=== PATIENT | female | born 1975 | race American Indian/Alaskan Native ===

== ENCOUNTER 2016-07-08 06:13 | Day surgery (SDC) | payer MEDICAID, OTHER ==
[2016-07-08] MEDS ORDERED: PEPCID PO NR (07:00)
[2016-07-08] MEDS ORDERED: VERSED IV NR (07:00)
[2016-07-08] MEDS ORDERED: NACL 0.9% 1000 ML 1,000 ML IV SCH (07:00)
--- NOTE | 2016-07-08 07:01 | Anesthesia Consultation ---
Anesthesia Consult and Med Hx Date of service: 07/08/16 - Airway Anesthetic Teeth Evaluation: Partials ROM Head & Neck: Adequate Mental/Hyoid Distance: Adequate Mallampati Class: Class I Intubation Access Assessment: Good - Pulmonary Exam CTA: Yes - Cardiac Exam Cardiac Exam: RRR - Pre-Operative Health Status ASA Pre-Surgery Classification: ASA1 Proposed Anesthetic Plan: General (Previous BTL.) - Pulmonary Hx Smoking: No Hx Asthma: No Hx Respiratory Symptoms: No SOB: No COPD: No Hx Pneumonia: No Hx Sleep Apnea: No - Cardiovascular System Hx Hypertension: No Hx Coronary Artery Disease: No Hx Heart Attack/AMI: No Hx Angina: No Hx Percutaneous Transluminal Coronary Angioplasty (PTCA): No Hx Cardia Arrhythmia: No Hx Pacemaker: No Hx Internal Defibrillator: No Hx Valvular Heart Disease: No Hx Heart Murmur: No Hx Peripheral Vascular Disease: No - Central Nervous System Hx Neuromuscular Disorder: No Hx Seizures: No CVA: No Hx Back Pain: No Hx Psychiatric Problems: No - Gastrointestinal Hx Ulcer: No Hx Gastroesophageal Reflux Disease: No - Endocrine Hx Renal Disease: No Hx End Stage Renal Disease: No Hx Liver Disease: No Hx Insulin Dependent Diabetes: No Hx Non-Insulin Dependent Diabetes: No Hx Thyroid Disease: No Hx Hypothyroidism: No Hx Hyperthyroidism: No - Hematic Hx Anemia: Yes Hx Sickle Cell Disease: No - Other Systems Hx Alcohol Use: No Hx Substance Use: Yes (pt urine pos for opiates (per dr coleman's note)) Hx Cancer: No Hx Obesity: No
[2016-07-08] MEDS ORDERED: DILAUDID ONE (07:03)
[2016-07-08] MEDS ORDERED: DIPRIVAN 10 MG/ML IV ONE (07:03)
[2016-07-08] MEDS ORDERED: NACL BACTERIOSTATIC INFILTRATI ONE (07:04)
[2016-07-08] MEDS ORDERED: ZEMURON IV ONE ×2 (07:05→07:07)
[2016-07-08] MEDS ORDERED: XYLOCAINE MPF 2% ONE (07:06)
--- NOTE | 2016-07-08 07:16 | Anesthesia Day of Surgery ---
Anesthesia Day of Surgery - Day of Surgery Patient Examined: Yes Patient H&P Reviewed: Yes Patient is NPO: Yes
[2016-07-08 07:35] LABS: Basophils % (Auto) 1.3 % (0.0-1.8); Eosinophils % (Auto) 5.2 % (0.0-4.3); Hematocrit 31.2 % (30.3-42.9); Hemoglobin 10.2 gm/dl (10.1-14.3); Mean Corpuscular HGB Conc 33 % (30-34); Mean Corpuscular Hemoglobin 27 pg (28-32); Mean Corpuscular Volume 83 fl (79-97); Platelet Count 215 K/mm3 (140-440); Red Blood Count 3.77 M/mm3 (3.65-5.03); Red Cell Distribution Width 16.8 % (13.2-15.2); White Blood Count 5.7 K/mm3 (4.5-11.0)
--- NOTE | 2016-07-08 07:36 | Short Stay Summary ---
Short Stay Documentation Date of service: 07/08/16 Narrative H&P: Patient is a 40 year old who presents with positive test after tubal ligation and confirmed ectopic on ultrasound. FHTs were present which makes patient not eligible for medical management. - History H&P: obtained from office Past Medical History: No medical history Past Surgical History: Other (tubal ligation) Social history: - Allergies and Medications Current Medications: Allergies No Known Allergies Allergy (Verified 08/26/13 15:01) Home Medications Medication Instructions Recorded Confirmed Last Taken Type Vit-Fe Fumar-FA [ 1 tab PO DAILY 08/18/13 09/13/13 09/14/13 13: 00 History Vitamin] HYDROcodone/APAP 5-325 [Abrams 1 each PO Q6HR PRN #25 tablet 09/15/13 Unknown Rx 5/325 mg] Ibuprofen [Motrin] 600 mg PO Q6H PRN #40 tablet 09/15/13 Unknown Rx Active Medications Cefazolin Sodium (Ancef/Sterile Water 2 Gm/20 Ml) 2 gm IV PREOP NR Stop: 07/08/16 23:59 Famotidine (Pepcid) 20 mg PO PREOP NR Stop: 07/08/16 23:59 Last Admin: 07/08/16 07:29 Dose: 20 mg Sodium Chloride (Nacl 0.9% 1000 Ml) 1,000 mls @ 100 mls/hr IV DIRECT JESSICA Last Admin: 07/08/16 07:28 Dose: 100 mls/hr Midazolam HCl (Versed) 2 mg IV PREOP NR Stop: 07/08/16 23:59 - Physical exam General appearance: no acute distress Integumentary: no rash, no growths Lungs: Clear to auscultation, Normal air movement Breasts: deferred Heart: Regular rate, Normal S1, Normal S2 Gastrointestinal: normal, normoactive bowel sounds Female Genitourinary: normal Rectal Exam: deferred Extremities: no ischemia, No edema - Brief post op/procedure progress note Date of procedure: 07/08/16 Pre-op diagnosis: Left Ectopic Post-op diagnosis: same Procedure: Laparoscopic Salpingectomy, left Anesthesia: GETA Findings: Left ectopic with adhesion to left cornual surface, [id number] Syndrome (perihepatic adhesive disease Surgeon: BALBINA DAVIES Estimated blood loss: 50-100ml Pathology: list (adnexa and contents) Specimen disposition: to lab Condition: stable - Hospital course Hospital course: unremarkable - Disposition Condition at discharge: Good Disposition: DISCHARGED TO HOME OR SELFCARE Short Stay Discharge Plan Activity: no restrictions Weight Bearing Status: Weight Bear as Tolerated Wound: keep clean and dry Follow up with: BALBINA DAVIES MD [Staff Physician] - 14 Days Prescriptions: Ibuprofen [Motrin] 800 mg PO Q8HR PRN #40 tablet PRN Reason: Pain oxyCODONE /ACETAMINOPHEN [Percocet 5/325] 2 tab PO Q6HR PRN #30 tablet PRN Reason: Pain
[2016-07-08] MEDS ORDERED: ANCEF/STERILE WATER 2 GM/20 ML IV ONE (07:53)
[2016-07-08] MEDS ORDERED: ANCEF/STERILE WATER 2 GM/20 ML IV NR (08:00)
[2016-07-08] MEDS ORDERED: BLOXIVERZ ONE (08:04)
[2016-07-08] MEDS ORDERED: ROBINUL ONE (08:04)
[2016-07-08] MEDS ORDERED: ZOFRAN ONE (08:13)
[2016-07-08] MEDS ORDERED: TORADOL ONE (08:33)
[2016-07-08] MEDS ORDERED: NACL 0.9% IR ONE ×2 (08:35→08:36)
[2016-07-08] MEDS ORDERED: MARCAINE 0.5% INFILTRATI ONE (08:35)
--- NOTE | 2016-07-08 09:17 | Post Anesthesia Evaluation ---
- Post Anesthesia Evaluation Patient Participated: Yes Airway Patent: Yes Stable Respiratory Function: Yes Nausea/Vomiting: No Temp > 96.8F: Yes Pain Manageable: Yes Adequeate Hydration: Yes Anesthesia Complications: No Block Receding Appropriately: Not Applicable Patient on Ventilator: No
[2016-07-08 09:37] VITALS: BP 134/76
--- NOTE | 2016-07-10 11:22 | Operative Report ---
PREOPERATIVE DIAGNOSIS: Left ectopic . POSTOPERATIVE DIAGNOSIS: Left ectopic . PROCEDURE: Left salpingectomy with removal of ectopic . DESCRIPTION OF PROCEDURE: The patient was taken to the OR with IV running in place. She was appropriately identified as herself. She was given general anesthesia without difficulty. She was placed in dorsal lithotomy position and prepped and draped in normal sterile fashion. Attention was turned to the patient's vagina. manipulator was placed into the vagina using the speculum and tenaculum. Following this, a Roman catheter was placed into the bladder. The surgeon's gloves were changed. Attention was then turned to the patient's abdomen. A small 5 mm incision was made in the umbilicus. Through this incision, the trocar was placed. The laparoscope confirmed intraabdominal placement. The abdomen was insufflated with CO2 gas up to approximately 15 mmHg. Upon entry into the pelvis, the left side had an obvious ectopic . It appeared to be in the proximal portion of the tube and somewhat adherent to the other serosal layer of the uterus. Under direct visualization, additional trocars were placed, one in the left lower quadrant and a third in the midline just above the symphysis pubis. Using the grasper, the ectopic was identified. The end of the tube identified and the broad ligament underneath the tube was cauterized and transected using the LigaSure device. There was a slight plane in between the ectopic and the serosal wall. This plane was entered into, cauterized and transected circumferentially following which time once at the base of the ectopic, it was also cauterized and transected until ectopic was completely detached. Then using the Endopouch, the ectopic was placed into pouch and pulled out through the left incision in the abdomen. The abdomen was then copiously irrigated with saline following removal of the tissue. There was excellent hemostasis noted. At this point, all instruments removed from the patient's abdomen and pelvis. Of note, prior to removing the ectopic, the right adnexa was looked at and appeared to be completely ; however, a portion of the proximal tube was recauterized just for safety sake. Once again, instruments were removed from the abdomen and pelvis. The abdomen was then deflated and the skin was closed with 4-0 Monocryl. The sponge, lap, needle, and instrument counts were correct x 2. The manipulator was removed. The patient was awakened and taken to recovery in stable condition. She tolerated the procedure well. JOB# [id number] GHANSHYAM/MARGARET
== END 2016-07-08 10:20 | disposition home or self-care (01) ==
LOC: OR 06:13
PROVIDERS: ATTEND Obstetrics & Gynecology
DX: O00.90 Unspecified ectopic pregnancy without intrauterine pregnancy (principal); D64.9 Anemia, unspecified; F11.90 Opioid use, unspecified, uncomplicated; Z98.51 Tubal ligation status
CPT/HCPCS: 36415; 59151; 85025; 86850; 86900; 86901; 88305; 88341; 88342; A4217; J0690; J1170; J1885; J2250; J2405; J2704; J2710; J7030